=== PATIENT | male | born 2000 | race Caucasian/White ===

== ENCOUNTER 2019-02-17 00:40 | Emergency (ER) | payer MEDICAID ==
[~2019-02-17] VITALS: Ht 182.9 cm; Wt 59.0 kg
[2019-02-17 00:42] VITALS: BP 123/80
--- NOTE | 2019-02-17 00:42 | NUR ---
TO BED # 02 AMBULATORY
[2019-02-17] MEDS ORDERED: KETOROLAC 60 MG/2 ML VIAL IM ONE (01:05)
--- NOTE | 2019-02-17 01:33 | NUR ---
after tordol given, pt stated he felt light headed and nauseas, pt b/p 72/35 on monitor, hr 75, 02 sat: 98% on r/a. 18g placed in [place], 1l Ns started. pt placed in trendelenberg
--- NOTE | 2019-02-17 01:36 | NUR ---
dr. moran at bedside, aware, verbal orders given
--- NOTE | 2019-02-17 01:36 | NUR ---
b/p 98/49 map of 67 at this time
[2019-02-17] MEDS ORDERED: NACL 0.9% 1,000 ML IV ONE (01:45)
[2019-02-17 02:19] VITALS: BP 110/69
--- NOTE | 2019-02-17 02:32 | NUR ---
Patient discharged by dr. moran with v/s stable. Written and verbal after care instructions given and explained. Patient alert, oriented and verbalized understanding of instructions. Ambulatory with steady gait. All questions addressed prior to discharge. ID band removed. Patient advised to follow up with PMD. Rx naprosyn of given. Patient educated on indication of medication including possible reaction and side effects. Opportunity to ask questions provided and answered.
== END 2019-02-17 02:32 | disposition home or self-care (01) ==
LOC: MED 00:40
DX: G44.209 Tension-type headache, unspecified, not intractable (principal); F12.10 Cannabis abuse, uncomplicated
CPT/HCPCS: 96372; 99283; J1885; J7030